=== PATIENT | male | born 1960 | race Asian ===

== ENCOUNTER → 2024-01-07 15:08 | Outpatient (REF) | payer BC, SELFPAY | LOC: RCS 15:08 | PROVIDERS: ATTENDING PHYSICIAN Internal Medicine Cardiovascular Disease; FAMILY PHYSICIAN Internal Medicine | DX: I10 Essential (primary) hypertension (principal); M79.602 Pain in left arm | CPT/HCPCS: 93017 ==

== ENCOUNTER 2025-02-26 03:40 | Emergency (ER) | payer OTHER, SELFPAY ==
[2025-02-26 03:43] VITALS: BP 140/97
--- NOTE | 2025-02-26 04:37 | ED.GENMED ---
History of Present Illness
General
Chief Complaint: Flank Pain
Source: patient
Exam Limitations: none
Time Seen by Provider: 02/26/25 04:25
Nursing documentation reviewed up to this point in time: agreed with
History of Present Illness
History of Present Illness:
64-year-old male with a past medical history of hypertension, seasonal allergies, kidney stones presents emergency department with concerns of left inguinal pain with nausea. Patient states that this feels similar to when he had a kidney stone in
the past. He woke up in the middle of the night with these symptoms. He follows with Dr. Valdez and has required lithotripsy surgery for this in the past. He denies any blood in his urine. He denies any burning with urination. He denies any
fevers or chills. He denies any abdominal pain or flank pain.
Past History
Past History
ED Past Medical History: HTN and Other (Kidney stones)
ED Past Surgical History: Appendectomy
Social History
Tobacco: Non-smoker
Personal:
Living: with family
Employment: Employed
Family History
Family History: Other (Noncontributory)
Review of Systems
Review of Systems
All Other Systems: ROS reviewed and negative except as documented in HPI and ROS
Phy Exam
Physical Exam
Physical Exam:
General: Patient is well appearing and in no acute distress; non-toxic
Skin: Warm and dry, no rashes or lesions
Head: Normocephalic, atraumatic
Eyes: Sclera non-icteric. EOMs intact.
Cardiac: Regular rate and rhythm, no murmurs
Peripheral Vascular: No lower extremity swelling or edema
Pulm: Normal respiratory effort, no wheezes, rales, rhonchi
Abdomen: Left lower inguinal tenderness to palpation, no CVA tenderness
Neuro: CN II-XII intact, no focal neurologic deficits.
Psychiatric: Appropriate mood and affect.
Course
Orders/Labs/Results
Orders:
Orders
02/26/25 04:34
IV Insert/Care/Rem.- Treatment PRN
02/26/25 04:36
Complete Blood Count/With Diff Urgent
Comprehensive Metabolic Panel Urgent
02/26/25 04:43
Ketorolac [Toradol] 15 mg IV NOW STA
Ondansetron HCl [Zofran] 4 mg PO NOW STA
02/26/25 04:44
CT Abd/pel Without Iv Or Oral Urgent
Comment:
Reason For Exam: left groin pain
0.9% Sodium Chloride 500 ml [Nss] 500 ml IV BOLUS
02/26/25 04:48
Ondansetron HCl [Zofran] 4 mg PO NOW STA
02/26/25 04:49
Ondansetron Injectable [Zofran] 4 mg IV NOW STA
02/26/25 05:36
0.9% Sodium Chloride 250 ml [Nss] 250 ml IV BOLUS
02/26/25 07:18
Urinalysis Reflex To Culture Urgent
Date Specimen was Collected: 02/26/25
Time Specimen was Collected: 07:16
Urine Microscopic Reflex Cult Urgent
Urine Culture Urgent
GENNY Source: U
Specimen Description:
Date Specimen was Collected: 02/26/25
Time Specimen was Collected: 07:16
Abnormal Lab Results
02/26/25 02/26/25
04:36 07:18
RBC 3.97 L 10^6/uL
(4.70-6.10)
Hct 37.9 L %
(39.0-52.0)
MCV 95.5 H fL
(80.0-94.0)
MCH 33.2 H pg
(27.0-31.0)
Absolute Monos (auto) 0.7 H 10^3/uL
(0.1-0.6)
Chloride 109 H mmol/L
(98-107)
BUN 35 H mg/dl
(9-20)
Glucose 133 H mg/dl
(70-99)
Ur Occult Blood Reflex 4+ A
(Negative)
Urine RBC 70-80 A /HPF
(0-2)
Urine Bacteria (Reflex) Moderate A
(Negative)
Urine Albumin (Reflex) 2+ A
(Neg - Trace)
02/26/25 04:36
02/26/25 04:36
Vital Signs
Initial and Last Documented VS:
Initial Vital Signs
Temp Pulse Resp BP Pulse Ox
97.5 F 72 20 140/97 100
02/26/25 03:43 02/26/25 03:43 02/26/25 03:43 02/26/25 03:43 02/26/25 03:43
Last Documented Vital Signs
Temp Pulse Resp BP Pulse Ox
97.5 F 64 16 141/79 99
02/26/25 03:43 02/26/25 07:10 02/26/25 07:10 02/26/25 07:10 02/26/25 07:10
MDM/Problems Addressed
Differential Diagnosis Includes:
Nephrolithiasis, diverticulitis, gastroenteritis, hip strain/strain, inguinal hernia
MDM/Problems Addressed:
64-year-old male presents emergency department today with concerns of left groin pain and nausea. Patient reports that this feel similar to when he had a kidney stone in the past. CAT scan of the abdomen reveals a 3.3 cm calculus within the
proximal mid left ureteral with mild to moderate left renal colic consistent dilation. Results reviewed with patient. Will start Flomax and use [id number] medications as needed for pain, prescription given for oxycodone for severe pain. He
has no fevers or UTI symptoms at this time no white count, patient did show some signs of dehydration was given IV fluids. Urinalysis
*Critical Care Note
Total Time (30-74mins, 75-104mins- exclusive of procedures): Not Applicable
ED Attending Note
-
Portions of this chart may have been created with voice recognition software.� Occasional wrong word or��sound alike� substitutions may have occurred due to the inherent limitations of voice recognition software.
Discharge Plan
Departure
Patient Disposition: Home (Routine Discharge)
Date of Disposition: 02/26/25
Time of Disposition: 06:58
Patient with high blood pressure during this ER visit?: Yes
Condition: Good
Discharge Problem:
Calculus of left kidney
Instructions: Kidney stones in adults, How to Strain Your Urine, BLOOD PRESSURE
Prescriptions:
New
tamsulosin [Flomax] 0.4 mg capsule
0.4 mg PO DAILY 7 Days Qty: 7 0RF
ondansetron HCl 4 mg tablet
4 mg PO Q6H PRN (Reason: nausea) Qty: 8 0RF
oxycodone 5 mg tablet
5 mg PO Q6H PRN (Reason: Pain) Qty: 8 0RF
No Action
olmesartan [Benicar] 20 MG tablet
20 mg PO DAILY
Referrals:
Arturo Valdez MD [Active] - Call in 1-3 days for appt
Riky Centeno MD [Family Provider] -
Activity Restrictions/Additional Instructions:
Flomax has been sent to your pharmacy. Please take 1 tablet once daily. You can use Tylenol and Motrin as needed for pain. Should your pain become severe persist, you take 1 oxycodone tablet every 6 hours as needed. Please reserve this for
severe pain. Narcotic pain medication can cause constipation. Please take MiraLAX or Colace with this medication.
Please call your urologist office for follow-up. Please strain your urine.
PLEASE RETURN EMERGENCY DEPARTMENT SHOULD YOU DEVELOP BURNING WITH URINATION, FEVERS OR CHILLS, PENILE PAIN, INTRACTABLE NAUSEA OR VOMITING, OR SIGNS OR SYMPTOMS WORRISOME TO YOU
Interventions
Interventions:
*Risk Screen - Suicide Last Done: 02/26/25 04:00
*General Assessment Last Done: 02/26/25 04:00
*Neglect/Abuse Screening Last Done: 02/26/25 04:00
*ED- Fall Risk Assessment Last Done: 02/26/25 04:00
*ED COVID-19 Vaccine History Last Done: 02/26/25 04:00
*Nursing Disposition Last Done: 02/26/25 07:10
RR-Kicgtq-Tvlnkvaarr Assessment Last Done: 02/26/25 04:00
ED-Male Genitourinary Assessment Last Done: 02/26/25 04:00
Discharge Date and Time
Discharge Date/Time: 02/26/25 07:10
Print Language: SWISS
[2025-02-26 04:47] LABS: % Basophils 0.6 % (0-2); % Eosinophils 3.6 % (0-6); % Immature Granulocytes 0.3 % (0-0.5); % Lymphocytes 27.2 % (20.5-51.1); % Monocytes 9.3 % (1.7-9.3); Absolute Eosinophils 0.3 10^3/uL (0-0.7); Absolute Monocytes 0.7 10^3/uL (0.1-0.6); Absolute Neutrophils 4.2 10^3/uL (1.4-6.5); Hematocrit 37.9 % (39.0-52.0); Hemoglobin 13.2 g/dL (13.0-18.0); Mean Corp Hgb Conc. 34.8 g/dL (33.0-37.0); Mean Corpuscular Hgb 33.2 pg (27.0-31.0); Mean Corpuscular Volume 95.5 fL (80.0-94.0); Mean Platelet Volume 9.9 fL (7.4-10.4); Nucleated Red Blood Cells % 0 % (-); Platelet Count 193 10^3/uL (130-400); Red Blood Cell Count 3.97 10^6/uL (4.70-6.10); Red Cell Dist. Width 12.8 % (11.5-14.5); White Blood Cell Count 7.2 10^3/uL (4.8-10.8)
[2025-02-26] MEDS: ZOFRAN 4 MG IV (04:52)
[2025-02-26] MEDS: NSS 500 IV (04:53)
[2025-02-26] MEDS: TORADOL 15 MG IV (04:55)
[2025-02-26 05:00] VITALS: BP 140/85
[2025-02-26 05:01] VITALS: BMI 26.5
[2025-02-26 05:01] LABS: ALT (SGPT) 39 U/L (0-50); AST (SGOT) 25 U/L (17-59); Albumin 4.1 g/dl (3.5-5.0); Alkaline Phosphatase 65 U/L (38-126); Blood Urea Nitrogen 35 mg/dl (9-20); Calcium 8.7 mg/dl (8.4-10.2); Carbon Dioxide 24 mmol/L (22-30); Chloride 109 mmol/L (98-107); Glucose 133 mg/dl (70-99); Potassium 4.4 mmol/L (3.5-5.1); Sodium 141 mmol/L (135-145); Total Bilirubin 0.9 mg/dl (0.2-1.3); Total Protein 7.3 g/dl (6.3-8.2); eGFR > 60.00
[2025-02-26] MEDS: NSS 250 IV (06:09)
[2025-02-26 07:10] VITALS: BP 141/79
[2025-02-26 07:46] LABS: Urine Albumin 2+ (Neg - Trace); Urine Bilirubin Negative (Negative); Urine Character Clear (Clear); Urine Color Yellow; Urine Glucose Negative (Negative); Urine Ketone Negative (Negative); Urine Leukocyte Negative (Negative); Urine Nitrite Negative (Negative); Urine Occult Blood 4+ (Negative); Urine Specific Gravity 1.025 (<1.030); Urine Urobilinogen Negative (Neg - 1+)
[2025-02-26 08:11] LABS: Urine Bacteria Moderate (Negative)
[2025-02-26 08:12] LABS: Urine Red Blood Cell 70-80 /HPF (0-2)
[2025-02-26 08:13] LABS: Urine Mucus Moderate
== END 2025-02-26 07:10 | disposition home or self-care (01) ==
LOC: EMR 03:40
PROVIDERS: Physician Assistant; EMERGENCY PHYSICIAN Emergency Medicine; FAMILY PHYSICIAN Internal Medicine
DX: N20.2 Calculus of kidney with calculus of ureter (principal); I10 Essential (primary) hypertension; Z90.49 Acquired absence of other specified parts of digestive tract
CPT/HCPCS: 96374; 96375; 96361; 99284; 74176; 80053; 81003; 81015; 85025; 87086